=== PATIENT | male | born 1995 | race Caucasian/White ===

== ENCOUNTER 2018-06-24 17:37 | Emergency (ER) | payer OTHER ==
[2018-06-24 18:43] LABS: HEMATOCRIT 49.4 % (42.0-52.0); HEMOGLOBIN 17.1 g/dl (13.5-17.5); MEAN CORPUSCULAR HEMOGLOBIN 29.9 pg (27.0-33.0); MEAN CORPUSCULAR HGB CONC 34.6 g/dl (32.0-36.5); MEAN CORPUSCULAR VOLUME 86.4 fl (80.0-96.0); PLATELET COUNT, AUTOMATED 112 10^3/uL (150-450); RED BLOOD COUNT 5.72 10^6/uL (4.30-6.10); RED CELL DISTRIBUTION WIDTH 12.6 % (11.5-14.5); WHITE BLOOD COUNT 9.4 10^3/uL (4.0-10.0)
[2018-06-24 19:10] LABS: AMPHETAMINES LEVEL URINE NEGATIVE (NEGATIVE); BARBITURATES URINE NEGATIVE (NEGATIVE); BENZODIAZEPINES URINE NEGATIVE (NEGATIVE); CANNABINOIDS URINE NEGATIVE (NEGATIVE); COCAINE METABOLITE URINE NEGATIVE (NEGATIVE); METHADONE URINE NEGATIVE (NEGATIVE); OPIATES URINE NEGATIVE (NEGATIVE); PHENCYCLIDINE URINE NEGATIVE (NEGATIVE)
[2018-06-24 19:15] LABS: ACETAMINOPHEN LEVEL < 2.0 UG/ML (10.0-30.0); ALBUMIN 4.4 GM/DL (3.2-5.2); ALBUMIN/GLOBULIN RATIO 1.38 (1.00-1.93); ALKALINE PHOSPHATASE 67 U/L (45-117); ALT/SGPT 42 U/L (12-78); ANION GAP 6 MEQ/L (8-16); AST/SGOT 23 U/L (7-37); BILIRUBIN,DIRECT 0.1 MG/DL (0.0-0.2); BILIRUBIN,TOTAL 0.4 MG/DL (0.2-1.0); BLOOD UREA NITROGEN 9 MG/DL (7-18); CALCIUM LEVEL 9.1 MG/DL (8.5-10.1); CARBON DIOXIDE LEVEL 28 MEQ/L (21-32); CHLORIDE LEVEL 106 MEQ/L (98-107); ETHYL ALCOHOL (ETHANOL) < 0.003 % (0.000-0.010); GLOMERULAR FILTRATION RATE > 60.0 (>60); GLUCOSE, FASTING 93 MG/DL (70-100); POTASSIUM SERUM 4.1 MEQ/L (3.5-5.1); SALICYLATE LEVEL < 1.7 MG/DL (5.0-30.0); SODIUM LEVEL 140 MEQ/L (136-145); TOTAL PROTEIN 7.6 GM/DL (6.4-8.2)
== END 2018-06-24 20:44 | disposition home or self-care (01) ==
LOC: M ED 17:37
DX: F41.8 Other specified anxiety disorders (principal); F17.210 Nicotine dependence, cigarettes, uncomplicated
CPT/HCPCS: G0480

== ENCOUNTER 2018-07-30 17:25 | Inpatient (IN) | payer OTHER ==
[~2018-07-30] VITALS: Ht 185.4 cm; Wt 112.9 kg
[2018-07-30 17:58] LABS: HEMATOCRIT 50.2 % (42.0-52.0); HEMOGLOBIN 17.5 g/dl (13.5-17.5); MEAN CORPUSCULAR HEMOGLOBIN 29.5 pg (27.0-33.0); MEAN CORPUSCULAR HGB CONC 34.9 g/dl (32.0-36.5); MEAN CORPUSCULAR VOLUME 84.7 fl (80.0-96.0); PLATELET COUNT, AUTOMATED 143 10^3/uL (150-450); RED BLOOD COUNT 5.93 10^6/uL (4.30-6.10); WHITE BLOOD COUNT 10.8 10^3/uL (4.0-10.0)
[2018-07-30 18:12] LABS: AMPHETAMINES LEVEL URINE NEGATIVE (NEGATIVE); BARBITURATES URINE NEGATIVE (NEGATIVE); BENZODIAZEPINES URINE NEGATIVE (NEGATIVE); CANNABINOIDS URINE NEGATIVE (NEGATIVE); COCAINE METABOLITE URINE NEGATIVE (NEGATIVE); METHADONE URINE NEGATIVE (NEGATIVE); OPIATES URINE NEGATIVE (NEGATIVE); PHENCYCLIDINE URINE NEGATIVE (NEGATIVE)
--- NOTE | 2018-07-30 18:51 | REP ---
RIGHT HAND, FOUR VIEWS: HISTORY: Trauma. There is no acute fracture or dislocation. The joint spaces are normal in appearance. IMPRESSION: There is no acute fracture or dislocation. Electronically Signed by Farzad Adams MD 07/30/2018 06:53 P
[2018-07-30 18:53] LABS: ACETAMINOPHEN LEVEL < 2.0 UG/ML (10.0-30.0); ALBUMIN 4.6 GM/DL (3.2-5.2); ALT/SGPT 37 U/L (12-78); BILIRUBIN,DIRECT 0.1 MG/DL (0.0-0.2); BILIRUBIN,TOTAL 0.5 MG/DL (0.2-1.0); BLOOD UREA NITROGEN 21 MG/DL (7-18); CALCIUM LEVEL 9.5 MG/DL (8.5-10.1); CARBON DIOXIDE LEVEL 25 MEQ/L (21-32); CHLORIDE LEVEL 106 MEQ/L (98-107); CREATININE FOR GFR 1.04 MG/DL (0.70-1.30); ETHYL ALCOHOL (ETHANOL) < 0.003 % (0.000-0.010); GLOMERULAR FILTRATION RATE > 60.0 (>60); GLUCOSE, FASTING 84 MG/DL (70-100); SODIUM LEVEL 140 MEQ/L (136-145); TOTAL PROTEIN 7.9 GM/DL (6.4-8.2)
[2018-07-30] MEDS ORDERED: ACETAMINOPHEN TAB 650MG DOSE (2X325MG) PO PRN (19:15)
[2018-07-30] MEDS ORDERED: MAALOX 30 ML SUSP *UDC PO PRN (19:15)
[2018-07-30] MEDS ORDERED: MOM 30ML SUSPENSION UDC PO PRN (19:15)
[2018-07-30] MEDS ORDERED: DIPH25CA PO (19:20)
[2018-07-30] MEDS ORDERED: PROAAER10 INH (19:20)
[2018-07-30] MEDS ORDERED: ACET1TAB55 PO (19:20)
[2018-07-30] MEDS ORDERED: FLON1SPR NARES (19:20)
[2018-07-30] MEDS ORDERED: AZIT-10 PO (19:20)
[2018-07-30] MEDS ORDERED: MUCI120T PO (19:20)
[2018-07-30 20:21] VITALS: BP 140/81
[2018-07-30] MEDS: OLANZapine ORAL DISINTEGRATING TAB 5MG PO PRN (20:56)
[2018-07-30] MEDS ORDERED: ALBUTEROL 90 MCG/ACT 8GM HFA INHALER INH PRN (21:15)
[2018-07-30] MEDS: AZITHROMYCIN 250 MG TAB PO SCH (21:36)
[2018-07-30] MEDS: traZODone 50 MG TAB PO PRN (21:37)
[2018-07-31 06:07] VITALS: BP 138/66
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
--- NOTE | 2018-07-31 09:46 | HPEPDOC ---
[facility] Medical History & Physical Date of Admission Jul 30, 2018 History and Physical PCP: [facility] ATTENDING: Dr. Milagro Taylor HPI: 22yoM admitted to [facility] for unspecified mood disorder, being medically examined today. No acute medical complaints today. Injured Rt hand with punching a wall yesterday prior to admission. XR in ED was negative for fracture. Denies any fevers, chills, weakness, fatigue, PFEIFFER, CP, SOB, cough, palpitations, abdominal pain, N/V/D or changes in bowel or bladder habits. PMHx: Anxiety depression insomnia H/O SI allergic rhinitis PSHX: cholecystectomy SOCHX: Resides in: [facility], [place] Marital Status: single Kids: none Employment: Active duty Tobacco use: 1-2 ppd ETOH: 1-2 drinks on weekends Illicit Drugs: Denies IV Drug Use: Denies Tattoos done unprofessionally: Denies FAMHX: Mother: Alive, well Father: unknown Siblings: 1 sister Alive, well Children: none Unexpected deaths due to medical reasons: None. ROS: As noted in HPI, otherwise 11pt ROS of systems reviewed and remarkable only for recent bronchitis, pt states was placed on Zithromax and has 2 days left of the prescription. States symptoms have improved, cough improved. Denies fevers, chills, sputum. PE: GEN: 22yoM, appears stated age. Well-nourished, well developed. No acute distress. Alert and oriented x 3. Pleasant, interactive. HEENT: Normocephalic, atraumatic. Pupils are equal, round, and reactive to light. Extraocular movements are intact. No nystagmus appreciated. Sclera are nonicteric. Conjunctiva without injection. Nose midline. Nasal turbinates without bogginess. EACs both patent BL. TMs both visualized and hernandez with good cone of light, no bulging or erythema. No facial asymmetry. Moist mucous membranes. Dentition fair. Pharynx pink and moist, no cobblestoning. Neck supple, trachea midline. No lymphadenopathy or thyromegaly appreciated. CHEST: Regular rate and rhythm, +S1, +S2 LUNGS: Clear to auscultation bilaterally. No wheezes, rales, or rhonchi. Breathing appears symmetric and easy. Patient is speaking in full sentences. No accessory muscle use. ABD: Round, soft, non-tender, non-distended. +Bowel sounds throughout. No rebound or guarding. No costovertebral angle tenderness. EXT: Pulses 2+ bilaterally dorsalis pedis and radial. No lower extremity edema appreciated. SKIN: [place], dry, warm. Capillary refill <2sec. No rashes. NEURO: Alert and oriented x 3. Cranial nerves III-XII are intact. No focal deficits appreciated. EKG: pending XR Rt Hand There is no acute fracture or dislocation. Electronically Signed by Farzad Adams MD 07/30/2018 06:53 P A&P: 22yoM admitted to [facility] for unspecified mood disorder 1. Psych. Plan per Psychiatry. Obtain baseline EKG to assure the safety of psychiatric medications as they can prolong the QT interval. 2. Nicotine dependence. Patch available. 3. Bronchitis. Tmax 99.0 WBC 10.8. Pt states symptoms are improving. Zithromax D 10/16. Continue Mucinex BID. Tylenol as needed. Albuterol HFA 2 puffs Q4 hr if needed. Monitor. 4. Follow up with PCP on discharge. 5. Rt hand pain S/P punching a wall. Continue tylenol as needed. Apply ice if needed. XR negative for fracture. 6. Allergic rhinitis. Continue Flonase daily. 7. Staff member Kamron present throughout exam. Vital Signs Vital Signs Date Time Temp Pulse Resp B/P (MAP) Pulse Ox O2 Delivery O2 Flow Rate FiO2 07/31/18 06:07 98.0 59 16 138/66 (90) 07/30/18 20:21 Room Air 07/30/18 19:18 98 Laboratory Data Labs 24H Laboratory Tests 2 07/30/18 17:41: Nucleated Red Blood Cells % (auto) 0.0, Anion Gap 9, Glomerular Filtration Rate > 60.0, Calcium Level 9.5, Aspartate Amino Transf (AST/SGOT) 21, Alanine Aminotransferase (ALT/SGPT) 37, Alkaline Phosphatase 79, Total Bilirubin 0.5, Direct Bilirubin 0.1, Total Protein 7.9, Albumin 4.6, Albumin/Globulin Ratio 1.39, Thyroid Stimulating Hormone (TSH) 1.390, Salicylates Level 2.0L, Urine Amp hetamines Screen NEGATIVE, Urine Benzodiazepines Screen NEGATIVE, Urine Opiates Screen NEGATIVE, Urine Methadone Screen NEGATIVE, Acetaminophen Level < 2.0L, Urine Barbiturates Screen NEGATIVE, Urine Phencyclidine Screen NEGATIVE, Urine Cocaine Metabolite Screen NEGATIVE, Urine Cannabinoids Screen NEGATIVE, Ethyl Alcohol Level < 0.003 CBC/BMP Laboratory Tests 07/30/18 17:41 Red Blood Count 5.93, Mean Corpuscular Volume 84.7, Mean Corpuscular Hemoglobin 29.5, Mean Corpuscular Hemoglobin Concent 34.9, Red Cell Distribution Width 12.7 Home Medications Scheduled (Mucinex D 120-1200 mg) 1 Tab Tab, 2 TAB PO DAILY Azithromycin (Azithromycin) 250 Mg Tab, 250 MG PO DAILY HAS 2 DOSES LEFT OF Z-LUISA Fluticasone Propionate (Flonase Allergy Relief) 50 Mcg/Act Spr, 2 SPRAY NARES DAILY Scheduled PRN Acetaminophen (Acetaminophen) 325 Mg Tab, 650 MG PO Q6H PRN for PAIN Albuterol Sulfate (Proair Hfa) 108 Mcg/Act Aer, 2 PUFF INH QID PRN for SHORTNESS OF BREATH Diphenhydramine HCl (Diphenhydramine HCl) 25 Mg Cap, 50 MG PO QHS PRN for SLEEP Allergies Coded Allergies: No Known Drug Allergy (Verified Allergy, Unknown, 06/24/18) Tiffanie Gordillo Jul 31, 2018 09:46
[2018-07-31] MEDS: guaiFENesin ER 600 MG TAB PO SCH ×2 (11:37→21:31)
[2018-07-31] MEDS: NICOTINE 21MG/24HR 1 EA TRANSDERMAL TD SCH (11:37)
[2018-07-31] MEDS: SERTRALINE HCL 50 MG TAB PO SCH (11:37)
[2018-07-31] MEDS: hydrOXYzine 50 MG TAB PO SCH ×2 (11:37→21:31)
[2018-07-31] MEDS: FLUTICASONE PROP 0.05% NASAL SPRAY 16 GM (FLONASE) NARES SCH (11:37)
[2018-07-31 18:00] VITALS: BP 127/59
[2018-07-31] MEDS: traZODone 50 MG TAB PO PRN (21:31)
[2018-07-31] MEDS: AZITHROMYCIN 250 MG TAB PO SCH (21:31)
--- NOTE | 2018-08-01 00:03 | ECGEPIP ---
Stationary ECG Study Test Date: 2018-07-31 Pat Name: DAISY ALVARADO Department: Room: [place] [address] Gender: M Program Professional: ANA ROSA : 1995 Requested By: Tiffanie Gordillo Order Number: [id number] Reading MD: Taz Gonzalez Measurements Intervals [place] Rate: 68 P: 60 OH: 158 QRS: 60 QRSD: 101 T: 43 QT: 369 QTc: 393 Interpretive Statements SINUS RHYTHM WITH SINUS ARRHYTHMIA Comparison tracing not on file Electronically Signed On 08-01-2018 0:03:11 EST by Taz Gonzalez
[2018-08-01 06:39] VITALS: BP 124/60
[2018-08-01] MEDS: FLUTICASONE PROP 0.05% NASAL SPRAY 16 GM (FLONASE) NARES SCH (08:57)
[2018-08-01] MEDS: NICOTINE 21MG/24HR 1 EA TRANSDERMAL TD SCH (08:57)
[2018-08-01] MEDS: hydrOXYzine 50 MG TAB PO SCH ×2 (08:57→22:43)
[2018-08-01] MEDS: guaiFENesin ER 600 MG TAB PO SCH ×2 (08:57→21:55)
[2018-08-01] MEDS: SERTRALINE HCL 50 MG TAB PO SCH (08:57)
[2018-08-01 18:00] VITALS: BP 144/76
[2018-08-01] MEDS: traZODone 50 MG TAB PO PRN (22:43)
[2018-08-02 06:38] VITALS: BP 128/62
[2018-08-02] MEDS: SERTRALINE HCL 50 MG TAB PO SCH (08:59)
[2018-08-02] MEDS: FLUTICASONE PROP 0.05% NASAL SPRAY 16 GM (FLONASE) NARES SCH (08:59)
[2018-08-02] MEDS: NICOTINE 21MG/24HR 1 EA TRANSDERMAL TD SCH (08:59)
[2018-08-02] MEDS: guaiFENesin ER 600 MG TAB PO SCH ×2 (08:59→21:49)
[2018-08-02] MEDS: hydrOXYzine 50 MG TAB PO SCH ×2 (08:59→21:49)
--- NOTE | 2018-08-02 14:00 | IPN ---
DATE OF SERVICE: 08/01/2018 The patient today states, "It has been a pretty good day today". He says he is feeling less depressed. Mood is 3/10 with the closer to 10 as the most depressed. He is also sleeping well, actually for the very first time since he can remember. He says he slept very well with the trazodone. He is denying being suicidal today. MENTAL STATUS EXAMINATION: The patient is alert and oriented times three. Eye contact is good. Psychomotor activity is normal. No formal thought disorder noted. Mood is "pretty good". Affect is appropriate to mood. He is not psychotic, suicidal or homicidal. Concentration is fair. Insight and judgment fair. DIAGNOSIS: Major depressive disorder, recurrent. Other specified trauma and stressors. At this point, will continue to monitor the patient for continued resolution of suicidal ideations and continued elevation and stabilization of his mood, which he is now resolving.
[2018-08-02 18:01] VITALS: BP 138/76
[2018-08-02] MEDS: traZODone 100 MG TAB PO PRN (22:04)
[2018-08-03 06:32] VITALS: BP 131/76
[2018-08-03] MEDS: guaiFENesin ER 600 MG TAB PO SCH ×2 (09:01→21:13)
[2018-08-03] MEDS: NICOTINE 21MG/24HR 1 EA TRANSDERMAL TD SCH (09:01)
[2018-08-03] MEDS: hydrOXYzine 50 MG TAB PO SCH ×2 (09:01→21:13)
[2018-08-03] MEDS: SERTRALINE HCL 50 MG TAB PO SCH (09:01)
[2018-08-03] MEDS: FLUTICASONE PROP 0.05% NASAL SPRAY 16 GM (FLONASE) NARES SCH (09:01)
--- NOTE | 2018-08-03 10:45 | MHIPNPDOC ---
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 Pt says he has been under a great deal of stress lately due to financial problems incurred while helping to support his mother. Pt also cites work problems as a source of stress. Today he says he cursed out his [employer] and then punched a wall. Pt does have evidence of an injury to his right hand. Per Capt. Servando at , pt came in today and told him he'd written a suicide note and had intention to kill self with a knife. Per the Capt. pt was "sobbing" in the provider's office. Pt claims when he was at [facility] in June he minimized his problems. Today, pt expresses SI with a plan." VITAL SIGNS: See below. NEW TEST RESULTS: See below. CURRENT MEDICATIONS: See below. MENTAL STATUS EXAMINATION: Patient is a 22-year old male, who is alert, oriented and cooperative, in hospital scrubs. Speech: Is fluent, low in volume with regular rate and rhythm. Language skills are fair Thought processes including: logical and linear Thought content: Depressive thoughts, guilt over suicide attempt. Description of abnormal or psychotic thoughts: Denies AV hallucinations Judgment: poor Insight: fair Orientation: oriented to person, place and time Recent and remote memory: intact Attention span and concentration: fair Language: fair Fund of knowledge: fair Mood: depressed, constricted Affect: Mood congruent DIAGNOSES: 1. Major Depressive Disorder, recurrent 2. Other specified trauma and stressors ASSESSMENT: Patient was interviewed today while reading in his room. Mr. Garcia was quite pleasant and cooperative. He willingly discussed the circumstances that lead to his presentation. 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 He is regretful of his planned suicide. He remains shocked that he was in such a low place to have almost completed his attempt. He shares that he is greatful to be alive today, although he does recognize that he needs further, long-term treatment, help to prevent himself from slipping back to that dark place. He shares a history of starting to work at a young age in order to care for his mother who is riddled with a number of health ailments, including a broken back. Mr. Garcia has been supporting his mom since his first paycheck. 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 He is originally from [place] and believes the weather, in addition to his work stress, has contributed to his symptoms. He feels safe on the unit. He denies SI/HI and AV hallucinations. Mr. Garcia contracts for safety. MANAGEMENT PLAN: Continue current plan and monitor for suicidal ideation TIME SPENT: 30 minutes. Vital Signs Vital Signs Date Time Temp Pulse Resp B/P (MAP) Pulse Ox O2 Delivery O2 Flow Rate FiO2 08/03/18 06:32 97.8 72 18 131/76 (94) 08/02/18 09:00 Room Air 07/30/18 19:18 98 Current Medications Current Medications Acetaminophen (Tylenol Tab) 650 mg Q6HP PRN PO HEADACHE or DISCOMFORT Last administered on 07/31/18at 21:34; Start 07/30/18 at 19:15 Al Hydrox/Mg Hydrox/Simethicone (Mylanta) 30 ml Q4HP PRN PO HEARTBURN/INDIGESTION; Start 07/30/18 at 19:15 Albuterol Sulfate (Proventil, Ventolin Hfa) 2 puff QIDP PRN INH SHORTNESS OF BREATH Last administered on 08/01/18at 15:39; Start 07/30/18 at 21:15 Azithromycin (Zithromax Tab) 250 mg QHS PO Last administered on 07/31/18at 21:31; Start 07/30/18 at 21:00; Stop 07/31/18 at 21:01; Status DC Fluticasone Propionate (Flonase 0.05% Nasal [employer]) 2 spray DAILY NARES Last administered on 08/03/18at 09:01; Start 07/31/18 at 09:00 Guaifenesin (Mucinex Tab Er) 600 mg BID PO Last administered on 08/03/18at 09: 01; Start 07/31/18 at 09:00 Home Med (Med Rec Complete!) ASDIRECTED XX ; Start 07/30/18 at 19:30; Stop 07/30/18 at 19:30; Status DC Hydroxyzine HCl (Atarax) 50 mg BID PO Last administered on 08/03/18at 09:01; Start 07/31/18 at 09:00 Magnesium Hydroxide (Milk Of Magnesia) 30 ml DAILYPRN PRN PO CONSTIPATION; Start 07/30/18 at 19:15 Nicotine (Nicoderm Cq 21mg) 1 patch DAILY TD Last administered on 08/03/18at 09:01; Start 07/31/18 at 09:00 Olanzapine (ZyPREXA ZYDIS) 5 mg Q6HP PRN PO ANXIETY/AGITATION Last administered on 07/30/18at 20:56; Start 07/30/18 at 19:15 Sertraline HCl (Zoloft) 50 mg QAM PO Last administered on 08/03/18at 09:01; Start 07/31/18 at 09:00 Trazodone HCl (Desyrel) 50 mg QHSP PRN PO INSOMNIA Last administered on 08/01/18at 22:43; Start 07/30/18 at 21:15; Stop 08/02/18 at 14:14; Status DC Trazodone HCl (Desyrel) 100 mg QHSP PRN PO INSOMNIA Last administered on 08/02/18at 22:04; Start 08/02/18 at 14:15 Allergies Coded Allergies: No Known Drug Allergy (Verified Allergy, Unknown, 06/24/18) GME ATTESTATION GME ATTESTATION My faculty preceptor for this patient encounter was physically present during the encounter and was fully available. All aspects of the patient interview, examination, medical decision making process, and medical care plan development were reviewed and approved by the faculty preceptor. The faculty preceptor is aware and concurs with the plan as stated in the body of this note and will attest to such by his/her cosignature. LAZARO DE LA VEGA DO Aug 03, 2018 10:45
[2018-08-03 18:00] VITALS: BP 133/70
[2018-08-03] MEDS: traZODone 100 MG TAB PO PRN (21:13)
--- NOTE | 2018-08-03 21:13 | MHIPN ---
DATE: 08/02/2018 The patient today states that he is feeling better. His mood is 5 out of 10 where the closest to 10 is the most depressed. He states that he slept good with the trazodone, but he felt that he was feeling better before when he was on 100 mg and requests that I increase the dose. MENTAL STATUS EXAMINATION: He is alert and oriented times three. Eye contact is fair. Psychomotor activity is normal. He is verbally spontaneous. There is no formal thought disorder noted. He says his mood is "better." Affect is full range and appropriate. He is not psychotic, suicidal or homicidal. Concentration is fair. Memory intact. Insight and judgment are fair. DIAGNOSES: 1. Major depressive disorder, recurrent. 2. Other specified trauma/ stressors.. TREATMENT PLAN: At this time, we will continue to treat the patient for continued elevation of his mood and for continued resolution of suicidal ideation and we will go ahead and increase the trazodone to 100 mg. MTDD
[2018-08-04 06:55] VITALS: BP 143/78
[2018-08-04] MEDS: FLUTICASONE PROP 0.05% NASAL SPRAY 16 GM (FLONASE) NARES SCH (08:45)
[2018-08-04] MEDS: hydrOXYzine 50 MG TAB PO SCH ×2 (08:46→21:53)
[2018-08-04] MEDS: SERTRALINE HCL 50 MG TAB PO SCH (08:46)
[2018-08-04] MEDS: guaiFENesin ER 600 MG TAB PO SCH ×2 (08:46→21:53)
[2018-08-04] MEDS: NICOTINE 21MG/24HR 1 EA TRANSDERMAL TD SCH (08:46)
--- NOTE | 2018-08-04 16:41 | MHIPNPDOC ---
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 Pt says he has been under a great deal of stress lately due to financial problems incurred while helping to support his mother. Pt also cites work problems as a source of stress. Today he says he cursed out his [employer] and then punched a wall. Pt does have evidence of an injury to his right hand. Per Capt. Servando at , pt came in today and told him he'd written a suicide note and had intention to kill self with a knife. Per the Capt. pt was "sobbing" in the provider's office. Pt claims when he was at [facility] in June he minimized his problems. Today, pt expresses SI with a plan." VITAL SIGNS: See below. NEW TEST RESULTS: See below. CURRENT MEDICATIONS: See below. MENTAL STATUS EXAMINATION: Patient is a 22-year old male, who is alert, oriented and cooperative, in hospital scrubs. Speech: Is fluent, low in volume with regular rate and rhythm. Language skills are fair Thought processes including: logical and linear Thought content: Depressive thoughts, guilt over suicide attempt. Description of abnormal or psychotic thoughts: Denies AV hallucinations Judgment: poor Insight: fair Orientation: oriented to person, place and time Recent and remote memory: intact Attention span and concentration: fair Language: fair Fund of knowledge: fair Mood: depressed, constricted Affect: Mood congruent DIAGNOSES: 1. Major Depressive Disorder, recurrent 2. Other specified trauma and stressors ASSESSMENT: Patient continues to subscribe to thoughts of depression. He shares that he is no longer suicidal, though he remains extremely depressed about the prospect of remaining in the . He continues to be regretful of his planned suicide and agreeable to long-term treatment. He is, however, anxious about receiving his treatment in a facility. He is worried that it will be similar to that of [place] and will be a hindrance to his recovery. He remained fixated on insuring he will be able to have cigarettes, as these have become a coping mechanism for him. He continues with his medications without difficulty or side effects. He denies SI/HI and AV hallucinations. Mr. Garcia contracts for safety. MANAGEMENT PLAN: Continue current plan and monitor for suicidal ideation with anticipation to discharge to long-term treatment facility. TIME SPENT: 30 minutes. Vital Signs Vital Signs Date Time Temp Pulse Resp B/P (MAP) Pulse Ox O2 Delivery O2 Flow Rate FiO2 08/04/18 07:42 Room Air 08/04/18 06:55 97.5 55 16 143/78 (99) 07/30/18 19:18 98 Current Medications Current Medications Acetaminophen (Tylenol Tab) 650 mg Q6HP PRN PO HEADACHE or DISCOMFORT Last administered on 07/31/18 21:34; Start 07/30/18 at 19:15 Al Hydrox/Mg Hydrox/Simethicone (Mylanta) 30 ml Q4HP PRN PO HEARTBURN/INDIGESTION; Start 07/30/18 at 19:15 Albuterol Sulfate (Proventil, Ventolin Hfa) 2 puff QIDP PRN INH SHORTNESS OF BREATH Last administered on 08/01/18at 15:39; Start 07/30/18 at 21:15 Azithromycin (Zithromax Tab) 250 mg QHS PO Last administered on 07/31/18at 21:31; Start 07/30/18 at 21:00; Stop 07/31/18 at 21:01; Status DC Fluticasone Propionate (Flonase 0.05% Nasal [place]) 2 spray DAILY NARES Last administered on 08/04/18at 08:45; Start 07/31/18 at 09:00 Guaifenesin (Mucinex Tab Er) 600 mg BID PO Last administered on 08/04/18at 08:46; Start 07/31/18 at 09:00 Home Med (Med Rec Complete!) ASDIRECTED XX ; Start 07/30/18 at 19:30; Stop 07/30/18 at 19:30; Status DC Hydroxyzine HCl (Atarax) 50 mg BID PO Last administered on 08/04/18at 08:46; Start 07/31/18 at 09:00 Magnesium Hydroxide (Milk Of Magnesia) 30 ml DAILYPRN PRN PO CONSTIPATION; Start 07/30/18 at 19:15 Nicotine (Nicoderm Cq 21mg) 1 patch DAILY TD Last administered on 08/04/18at 08:46; Start 07/31/18 at 09:00 Olanzapine (ZyPREXA ZYDIS) 5 mg Q6HP PRN PO ANXIETY/AGITATION Last administered on 07/30/18at 20:56; Start 07/30/18 at 19:15 Sertraline HCl (Zoloft) 50 mg QAM PO Last administered on 08/04/18at 08:46; Start 07/31/18 at 09:00; Stop 08/04/18 at 11:54; Status DC Sertraline HCl (Zoloft) 75 mg QAM PO ; Start 08/05/18 at 09:00 Trazodone HCl (Desyrel) 50 mg QHSP PRN PO INSOMNIA Last administered on 08/01/18at 22:43; Start 07/30/18 at 21:15; Stop 08/02/18 at 14:14; Status DC Trazodone HCl (Desyrel) 100 mg QHSP PRN PO INSOMNIA Last administered on 08/03/18at 21:13; Start 08/02/18 at 14:15 Allergies Coded Allergies: No Known Drug Allergy (Verified Allergy, Unknown, 06/24/18) GME ATTESTATION GME ATTESTATION My faculty preceptor for this patient encounter was physically present during the encounter and was fully available. All aspects of the patient interview, examination, medical decision making process, and medical care plan development were reviewed and approved by the faculty preceptor. The faculty preceptor is aware and concurs with the plan as stated in the body of this note and will attest to such by his/her cosignature. LAZARO DE LA VEGA DO Aug 04, 2018 16:41
[2018-08-04 18:21] VITALS: BP 136/68
[2018-08-04] MEDS: traZODone 100 MG TAB PO PRN (21:53)
[2018-08-05 06:55] VITALS: BP 118/66
[2018-08-05] MEDS: FLUTICASONE PROP 0.05% NASAL SPRAY 16 GM (FLONASE) NARES SCH (08:41)
[2018-08-05] MEDS: NICOTINE 21MG/24HR 1 EA TRANSDERMAL TD SCH (08:42)
[2018-08-05] MEDS: guaiFENesin ER 600 MG TAB PO SCH ×2 (08:42→20:51)
[2018-08-05] MEDS: SERTRALINE HCL 25 MG TABLET PO SCH (08:42)
[2018-08-05] MEDS: hydrOXYzine 50 MG TAB PO SCH ×2 (08:42→20:51)
[2018-08-05] MEDS: OLANZapine ORAL DISINTEGRATING TAB 5MG PO PRN (15:27)
--- NOTE | 2018-08-05 17:37 | MHIPNPDOC ---
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 Pt says he has been under a great deal of stress lately due to financial problems incurred while helping to support his mother. Pt also cites work problems as a source of stress. Today he says he cursed out his [employer] and then punched a wall. Pt does have evidence of an injury to his right hand. Per Capt. Servando at , pt came in today and told him he'd written a suicide note and had intention to kill self with a knife. Per the Capt. pt was "sobbing" in the provider's office. Pt claims when he was at [facility] in June he minimized his problems. Today, pt expresses SI with a plan." VITAL SIGNS: See below. NEW TEST RESULTS: See below. CURRENT MEDICATIONS: See below. MENTAL STATUS EXAMINATION: Patient is a 22-year old male, who is alert, oriented and cooperative, in hospital scrubs. Speech: Is fluent, low in volume with regular rate and rhythm. Language skills are fair Thought processes including: logical and linear Thought content: Depressive thoughts, guilt over suicide attempt, anxious thoughts about going to a Hospital ([facility] in [place]). He has irritable thoughts about being confined to a locked unit like [facility] Description of abnormal or psychotic thoughts: Denies AV hallucinations, denies SI, denies HI Judgment: poor Insight: fair Orientation: oriented to person, place and time Recent and remote memory: intact Attention span and concentration: fair Language: fair Fund of knowledge: fair Mood: depressed, anxious, slightly irritable, constricted Affect: Mood congruent DIAGNOSES: 1. Major Depressive Disorder, recurrent 2. Other specified trauma and stressors ASSESSMENT: patient says he continues to fels depressed, but at the same time he says he feels a little bit better compared to when he was admitted. he thinks he feels so bad because he misses going out to have a cigarette, he says he enjys nature, it has a healing power for him and being locked in makes him feel more anxious. He says he feels as if he is going to have a full panic attack or as if he is going to blow up when he is in group, because he can't stand being so c onstrained. I reminded him that he has Zyprexa PRN for anxiety or agitation and I reassured him that this medication does not cause dependence. he was able to relax and said he was going to take a Zyprexa tablet to calm down. We discussed about [facility] in [place] and HE SAID HE FELT BETTER AFTER i TOLD HIM THAT OTHER [employer] HAD FELT VERY PLEASED WITH THE WAY THEY WERE TREATED BY STAFF THERE. MANAGEMENT PLAN: Continue current plan and monitor for suicidal ideation with anticipation to discharge to long-term treatment facility. TIME SPENT: 30 minutes. Vital Signs Vital Signs Date Time Temp Pulse Resp B/P (MAP) Pulse Ox O2 Delivery O2 Flow Rate FiO2 08/05/18 06:55 98.4 63 18 118/66 (83) 08/04/18 07:42 Room Air 07/30/18 19:18 98 Current Medications Current Medications Acetaminophen (Tylenol Tab) 650 mg Q6HP PRN PO HEADACHE or DISCOMFORT Last administered on 07/31/18at 21:34; Start 07/30/18 at 19:15 Al Hydrox/Mg Hydrox/Simethicone (Mylanta) 30 ml Q4HP PRN PO HEARTBURN/INDIGES TION; Start 07/30/18 at 19:15 Albuterol Sulfate (Proventil, Ventolin Hfa) 2 puff QIDP PRN INH SHORTNESS OF BREATH Last administered on 08/01/18at 15:39; Start 07/30/18 at 21:15 Azithromycin (Zithromax Tab) 250 mg QHS PO Last administered on 07/31/18at 21:3 1; Start 07/30/18 at 21:00; Stop 07/31/18 at 21:01; Status DC Fluticasone Propionate (Flonase 0.05% Nasal [place]) 2 spray DAILY NARES Last administered on 08/05/18at 08:41; Start 07/31/18 at 09:00 Guaifenesin (Mucinex Tab Er) 600 mg BID PO Last administered on 08/05/18at 08:42; Start 07/31/18 at 09:00 Home Med (Med Rec Complete!) ASDIRECTED XX ; Start 07/30/18 at 19:30; Stop 07/30/18 at 19:30; Status DC Hydroxyzine HCl (Atarax) 50 mg BID PO Last administered on 08/05/18at 08:42; Start 07/31/18 at 09:00 Magnesium Hydroxide (Milk Of Magnesia) 30 ml DAILYPRN PRN PO CONSTIPATION; Start 07/30/18 at 19:15 Nicotine (Nicoderm Cq 21mg) 1 patch DAILY TD Last administered on 08/05/18at 08:42; Start 07/31/18 at 09:00 Olanzapine (ZyPREXA ZYDIS) 5 mg Q6HP PRN PO ANXIETY/AGITATION Last administered on 08/05/18at 15:27; Start 07/30/18 at 19:15 Sertraline HCl (Zoloft) 50 mg QAM PO Last administered on 08/04/18at 08:46; Start 07/31/18 at 09:00; Stop 08/04/18 at 11:54; Status DC Sertraline HCl (Zoloft) 75 mg QAM PO Last administered on 08/05/18at 08:42; Start 08/05/18 at 09:00 Trazodone HCl (Desyrel) 50 mg QHSP PRN PO INSOMNIA Last administered on 08/01/18at 22:43; Start 07/30/18 at 21:15; Stop 08/02/18 at 14:14; Status DC Trazodone HCl (Desyrel) 100 mg QHSP PRN PO INSOMNIA Last administered on 08/04/18at 21:53; Start 08/02/18 at 14:15 Allergies Coded Allergies: No Known Drug Allergy (Verified Allergy, Unknown, 06/24/18) CASEY COLLAZO MD Aug 05, 2018 17:37
[2018-08-05 18:34] VITALS: BP 133/82
[2018-08-05] MEDS: traZODone 100 MG TAB PO PRN (21:22)
[2018-08-06 06:30] VITALS: BP 129/64
[2018-08-06] MEDS: FLUTICASONE PROP 0.05% NASAL SPRAY 16 GM (FLONASE) NARES SCH (08:16)
[2018-08-06] MEDS: hydrOXYzine 50 MG TAB PO SCH ×2 (08:17→21:16)
[2018-08-06] MEDS: SERTRALINE HCL 25 MG TABLET PO SCH (08:17)
[2018-08-06] MEDS: guaiFENesin ER 600 MG TAB PO SCH ×2 (08:17→21:16)
[2018-08-06] MEDS: NICOTINE 21MG/24HR 1 EA TRANSDERMAL TD SCH (08:18)
[2018-08-06] MEDS ORDERED: SERTRALINE HCL 25 MG TABLET PO ONE (08:45)
[2018-08-06] MEDS ORDERED: HYDRO50TAB PO (16:40)
[2018-08-06] MEDS ORDERED: TRAZ10TA PO (16:40)
[2018-08-06] MEDS ORDERED: OLAN5ZYD PO (16:40)
[2018-08-06] MEDS ORDERED: SERT-138 PO (16:40)
[2018-08-06 18:00] VITALS: BP 141/65
--- NOTE | 2018-08-06 18:46 | MHIPNPDOC ---
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 Pt says he has been under a great deal of stress lately due to financial problems incurred while helping to support his mother. Pt also cites work problems as a source of stress. Today he says he cursed out his [employer] and then punched a wall. Pt does have evidence of an injury to his right hand. Per Capt. Servando at , pt came in today and told him he'd written a suicide note and had intention to kill self with a knife. Per the Capt. pt was "sobbing" in the provider's office. Pt claims when he was at [facility] in June he minimized his problems. Today, pt expresses SI with a plan." VITAL SIGNS: See below. NEW TEST RESULTS: See below. CURRENT MEDICATIONS: See below. MENTAL STATUS EXAMINATION: Patient is a 22-year old male, who is alert, oriented and cooperative, in hospital scrubs. Speech: Is fluent, low in volume with regular rate and rhythm. Language skills are fair Thought processes including: logical and linear Thought content: Depressive thoughts, guilt over suicide attempt, anxious thoughts about going to a Hospital, but looking forward to leaving the unit. Description of abnormal or psychotic thoughts: Denies AV hallucinations, denies SI, denies HI Judgment: poor Insight: fair Orientation: oriented to person, place and time Recent and remote memory: intact Attention span and concentration: fair Language: fair Fund of knowledge: fair Mood: depressed, anxious, slightly irritable, constricted Affect: Mood congruent DIAGNOSES: 1. Major Depressive Disorder, recurrent 2. Other specified trauma and stressors ASSESSMENT: Patient was informed that he would likely be leaving tomorrow to a long-term treatment facility in [place]. Mr. Garcia was quite pleased with the news. He was originally unsettled about going as he felt spending time in another facility would only increase his depressive symptoms. Once he was re- assured by staff that the treatment center was run by civilians, he became much more open to the idea. He continues to describe feelings of anxiety and depression although, he reports, they have improved. He denies SI/HI, AV hallucinations. He contracts for safety while remaining on the unit. MANAGEMENT PLAN: Continue current plan and monitor for suicidal ideation with anticipation to discharge to long-term treatment facility. TIME SPENT: 30 minutes. Vital Signs Vital Signs Date Time Temp Pulse Resp B/P (MAP) Pulse Ox O2 Delivery O2 Flow Rate FiO2 08/06/18 08:22 Room Air 08/06/18 06:30 97.9 84 18 129/64 (85) Current Medications Current Medications Acetaminophen (Tylenol Tab) 650 mg Q6HP PRN PO HEADACHE or DISCOMFORT Last administered on 07/31/18 21:34; Start 07/30/18 at 19:15 Al Hydrox/Mg Hydrox/Simethicone (Mylanta) 30 ml Q4HP PRN PO HEARTBURN/INDIGESTION; Start 07/30/18 at 19:15 Albuterol Sulfate (Proventil, Ventolin Hfa) 2 puff QIDP PRN INH SHORTNESS OF BREATH Last administered on 08/01/18at 15:39; Start 07/30/18 at 21:15 Azithromycin (Zithromax Tab) 250 mg QHS PO Last administered on 07/31/18at 21:31; Start 07/30/18 at 21:00; Stop 07/31/18 at 21:01; Status DC Fluticasone Propionate (Flonase 0.05% Nasal [place]) 2 spray DAILY NARES Last administered on 08/06/18 08:16; Start 07/31/18 at 09:00 Guaifenesin (Mucinex Tab Er) 600 mg BID PO Last administered on 08/06/18at 08:17; Start 07/31/18 at 09:00 Home Med (Med Rec Complete!) ASDIRECTED XX ; Start 07/30/18 at 19:30; Stop 07/30/18 at 19:30; Status DC Hydroxyzine HCl (Atarax) 50 mg BID PO Last administered on 08/06/18at 08:17; Start 07/31/18 at 09:00 Magnesium Hydroxide (Milk Of Magnesia) 30 ml DAILYPRN PRN PO CONSTIPATION; Start 07/30/18 at 19:15 Nicotine (Nicoderm Cq 21mg) 1 patch DAILY TD Last administered on 08/06/18at 08:18; Start 07/31/18 at 09:00 Olanzapine (ZyPREXA ZYDIS) 5 mg Q6HP PRN PO ANXIETY/AGITATION Last administered on 08/05/18at 15:27; Start 07/30/18 at 19:15 Sertraline HCl (Zoloft) 50 mg QAM PO Last administered on 08/04/18at 08:46; Start 07/31/18 at 09:00; Stop 08/04/18 at 11:54; Status DC Sertraline HCl (Zoloft) 75 mg QAM PO Last administered on 08/06/18at 08:17; Start 08/05/18 at 09:00; Stop 08/06/18 at 08:26; Status DC Sertraline HCl (Zoloft) 100 mg QAM PO ; Start 08/07/18 at 09:00 Trazodone HCl (Desyrel) 50 mg QHSP PRN PO INSOMNIA Last administered on 08/01/18at 22:43; Start 07/30/18 at 21:15; Stop 08/02/18 at 14:14; Status DC Trazodone HCl (Desyrel) 100 mg QHSP PRN PO INSOMNIA Last administered on 08/05/18at 21:22; Start 08/02/18 at 14:15 Allergies Coded Allergies: No Known Drug Allergy (Verified Allergy, Unknown, 06/24/18) GME ATTESTATION GME ATTESTATION My faculty preceptor for this patient encounter was physically present during t he encounter and was fully available. All aspects of the patient interview, examination, medical decision making process, and medical care plan development were reviewed and approved by the faculty preceptor. The faculty preceptor is aware and concurs with the plan as stated in the body of this note and will attest to such by his/her cosignature. LAZARO DE LA VEGA DO Aug 06, 2018 18:46
[2018-08-06] MEDS: traZODone 100 MG TAB PO PRN (21:43)
[2018-08-07 06:40] VITALS: BP 135/59
[2018-08-07] MEDS ORDERED: SERTRALINE 100 MG TAB PO SCH (09:00)
--- NOTE | 2018-08-07 18:56 | MHDSPDOC ---
[facility] Discharge Summary Discharge Summary DATE OF ADMISSION: Jul 30, 2018 at 19:10 DATE OF DISCHARGE: Aug 07, 2018 at 08:15 DISCHARGE DIAGNOSES: 1. Major Depressive disorder, recurrent 2. Other specified trauma/stressor disorder REASON FOR ADMISSION: Patient is a 22 -year-old , male, who tells me, today, 07/31/18: "I left a note on my desk, but they were pissing me all day". "I don't want to talk about that", regarding the content of the note. 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 Pt says he has been under a great deal of stress lately due to financial problems incurred while helping to support his mother. Pt also cites work problems as a source of stress. Today he says he cursed out his [employer] and then punched a wall. Pt does have evidence of an injury to his right hand. Per Capt. Al at , pt came in today and told him he'd written a suicide note and had intention to kill self with a knife. Per the Capt. pt was "sobbing" in the provider's office. Pt claims when he was at [facility] in June he minimized his problems. Today, pt expresses SI with a plan." CONSULTANTS INVOLVED: None TREATMENT AND PROGRESS ON THE UNIT : Patient was cooperative, polite, never had behavioral problems. His mood had some improvement with the medications and he denied side effects but unfortunately he thinks that his depression, including his nicotine dependence are secondary to being in the [employer]. He doesn't like the [employer] and he was not very happy about going to [facility] until he was told it is run by civilians not [employer] staff. He said that he was not suicidal, not homicidal and not psychotic, he said he had hit the wall because it was better than hitting one of his higher ups. Patient has said that he felt as if he wanted to end his life before he was brought to the hospital because he felt overwhelmed but he really doesn't want to , he wants to get out of the [employer]. He is very depressed and his GARETH is very worried about him. They thought he would benefit from termite control representative treatment and I suggested it to him and he agereed. HOSPITAL COURSE: As above DISCHARGE ASSESSMENT: Not suicidal, not homicidal and not psychotic MENTAL STATUS EXAMINATION ON DISCHARGE: Patient is a 22-year old male, who is alert, oriented and cooperative, in hospital scrubs. Speech: Is fluent, low in volume with regular rate and rhythm. Language skills are fair Thought processes including: logical and linear Thought content: Depressive thoughts, guilt over suicide attempt, anxious thoughts about going to a Hospital, but looking forward to leaving the unit. Description of abnormal or psychotic thoughts: Denies AV hallucinations, denies SI, denies HI Judgment: poor Insight: fair Orientation: oriented to person, place and time Recent and remote memory: intact Attention span and concentration: fair Language: fair Fund of knowledge: fair Mood: depressed, anxious, slightly irritable, constricted Affect: Mood congruent MEDICATIONS ON DISCHARGE: Scheduled (Mucinex D 120-1200 mg) 1 Tab Tab, 2 TAB PO DAILY, (Reported) Azithromycin (Azithromycin) 250 Mg Tab, 250 MG PO DAILY, (Reported) HAS 2 DOSES LEFT OF Z-LUISA Fluticasone Propionate (Flonase Allergy Relief) 50 Mcg/Act Spr, 2 SPRAY NARES DAILY, (Reported) Hydroxyzine HCl (Hydroxyzine HCl) 50 Mg Tab, 50 MG PO BID for anxiety/agitation, #14 Sertraline HCl (Sertraline HCl) 100 Mg Tab, 100 MG PO QAM for depression, #7 Scheduled PRN Acetaminophen (Acetaminophen) 325 Mg Tab, 650 MG PO Q6H PRN for PAIN, (Reported) Albuterol Sulfate (Proair Hfa) 108 Mcg/Act Aer, 2 PUFF INH QID PRN for SHORTNESS OF BREATH, (Reported) Diphenhydramine HCl (Diphenhydramine HCl) 25 Mg Cap, 50 MG PO QHS PRN for SLEEP, (Reported) Olanzapine (Olanzapine Odt) 5 Mg Tab, 5 MG PO Q6HP PRN for ANXIETY/AGITATION, #28 Trazodone HCl (Trazodone HCl) 100 Mg Tab, 100 MG PO QHSP PRN for INSOMNIA, #7 PLAN/FOLLOWUP ARRANGEMENTS: Patient was picked up by GARETH at 8:30 a.m. to go to , pack his things and take the plane at noon time to go to [facility] for termite control representative treatment The amount of time spent in the coordination of care for this patient was approximately 30 minutes. Vital Signs/I&Os Vital Signs Date Time Temp Pulse Resp B/P (MAP) Pulse Ox O2 Delivery O2 Flow Rate FiO2 08/07/18 06:40 97.6 62 14 135/59 (84) 08/06/18 08:22 Room Air Medications Scheduled (Mucinex D 120-1200 mg) 1 Tab Tab, 2 TAB PO DAILY, (Reported) Azithromycin (Azithromycin) 250 Mg Tab, 250 MG PO DAILY, (Reported) HAS 2 DOSES LEFT OF Z-LUISA Fluticasone Propionate (Flonase Allergy Relief) 50 Mcg/Act Spr, 2 SPRAY NARES DAILY, (Reported) Hydroxyzine HCl (Hydroxyzine HCl) 50 Mg Tab, 50 MG PO BID for anxiety/agitation, #14 Sertraline HCl (Sertraline HCl) 100 Mg Tab, 100 MG PO QAM for depression, #7 Scheduled PRN Acetaminophen (Acetaminophen) 325 Mg Tab, 650 MG PO Q6H PRN for PAIN, (Reported) Albuterol Sulfate (Proair Hfa) 108 Mcg/Act Aer, 2 PUFF INH QID PRN for SHORTNESS OF BREATH, (Reported) Diphenhydramine HCl (Diphenhydramine HCl) 25 Mg Cap, 50 MG PO QHS PRN for SLEEP, (Reported) Olanzapine (Olanzapine Odt) 5 Mg Tab, 5 MG PO Q6HP PRN for ANXIETY/AGITATION, #28 Trazodone HCl (Trazodone HCl) 100 Mg Tab, 100 MG PO QHSP PRN for INSOMNIA, #7 Allergies Coded Allergies: No Known Drug Allergy (Verified Allergy, Unknown, 06/24/18) CASEY COLLAZO MD Aug 07, 2018 18:52
== END 2018-08-07 08:15 | DRG 885 ==
LOC: M ED 17:25 → M ED INP 19:10 → M PSY 20:19
PROVIDERS: ADMIT Psychiatry & Neurology Psychiatry; ATTEND Psychiatry & Neurology Psychiatry
DX: F33.9 Major depressive disorder, recurrent, unspecified (principal); J40 Bronchitis, not specified as acute or chronic; F43.8 Other reactions to severe stress; F17.210 Nicotine dependence, cigarettes, uncomplicated; J30.9 Allergic rhinitis, unspecified; M79.641 Pain in right hand; Z62.810 Personal history of physical and sexual abuse in childhood; Z56.4 Discord with boss and workmates; Z79.899 Other long term (current) drug therapy

== ENCOUNTER → 2018-11-25 | Outpatient (CLI) | payer OTHER ==
[~2018-11-25] MED LIST: ACET1TAB55 PO; AZIT-10 PO; DIPH25CA PO; FLON1SPR NARES; HYDRO50TAB PO; MUCI120T PO; OLAN5ZYD PO; PROAAER10 INH; SERT-138 PO; TRAZ10TA PO
--- NOTE | 2018-11-26 12:37 | SLEEPCENT ---
DATE OF STUDY: 11/25/2018 ORDERING PROVIDER: HUGH Arita Nocturnal polysomnography was performed for evaluation of sleep physiology in this patient with a history of witnessed apneas, excessive somnolence, and nonrestorative sleep. 6 hours and 29 minutes of data were reviewed. There were 315 minutes of sleep identified. Sleep latency was prolonged at 55 minutes. Rapid eye movement (REM) latency was short at 5 minutes. Sleep architecture was good with three REM cycles. Overall sleep efficiency was 82.2%. The electrocardiogram showed a sinus rhythm with an average heart rate of 62 beats per minute. Electroencephalogram (EEG) showed normal waveforms for awake and sleep. There were 51 respiratory events identified of 10 seconds in duration or greater for an apnea-hypopnea index of 9.7. The events were obstructive, not exclusive to sleep stage nor body posture. Arousals from respiratory events and arousals from snoring were included, occurred 12.6 times per hour. Oxygen desaturations were seen into the 80s. The remaining measures of sleep physiology were normal. IMPRESSION: Obstructive sleep apnea syndrome (G47.33). Apnea-hypopnea index 9.7. RECOMMENDATIONS: The patient should be encouraged to return to the sleep disorder center for pressure therapy. In the interim, alcohol and sedative avoidance should be practiced and caution exercised during the operation of motor vehicles.
== END ==
LOC: M SLEEP 19:47
PROVIDERS: ATTEND Nurse Practitioner Adult Health
DX: G47.33 Obstructive sleep apnea (adult) (pediatric) (principal)

== ENCOUNTER → 2018-12-29 | Outpatient (CLI) | payer OTHER ==
--- NOTE | 2018-12-29 09:42 | REP ---
ULTRASOUND ABDOMEN: Real-time sonographic evaluation of the abdomen performed. The patient has had a prior cholecystectomy. There is no intrahepatic or extrahepatic biliary dilatation, common bile duct measuring 6 mm. The liver and pancreas demonstrate no gross mass, pancreatic tale is not well seen due to overlying bowel gas. The spleen is mildly enlarged 1.6 x 5.0 x 13.3 cm with splenic index 838. No intrinsic abnormality is seen. The kidneys are normal in size and echotexture, right kidney measuring 1.1 x 5.8 x 4.7 cm and left kidney 12.0 x 5.3 x 5.6 cm. There is no renal mass, hydronephrosis or nephrolithiasis. Abdominal aorta is normal in caliber, approximately measuring 2.5 cm, mid aspect 1.7 and distally 1.5 cm. There is no ascites. IMPRESSION: Status post cholecystectomy with no biliary dilatation or free fluid. Mild splenomegaly. Electronically Signed by Josh Westbrook MD 12/29/2018 04:28 P
== END ==
LOC: M RAD 07:42
PROVIDERS: ATTEND Internal Medicine
DX: R10.811 Right upper quadrant abdominal tenderness (principal); Z90.49 Acquired absence of other specified parts of digestive tract; R16.1 Splenomegaly, not elsewhere classified

== ENCOUNTER → 2019-01-07 | Outpatient (CLI) | payer OTHER ==
--- NOTE | 2019-01-11 17:53 | SLEEPCENT ---
DATE OF PROCEDURE: 01/07/2019 ORDERED BY: Sondra Bianchi Nocturnal polysomnography was performed for the titration of pressure therapy in this patient with obstructive sleep apnea syndrome. Apnea-hypopnea index 9.7. For testing a [employer] nasal pillows device of medium size was used. 4 cm of water pressure were applied to the circuit and the lights were extinguished. 7 hours and 50 minutes of data were reviewed. There are 327 minutes of sleep identified. Sleep latency was prolonged at 115 minutes. REM latency was short at 5.5 minutes. Sleep architecture improved with optimal pressure therapy. Overall sleep efficiency was 71%. The electrocardiogram showed a sinus rhythm with an average heart rate is 58 beats per minute. EEG showed normal waveforms for awake and sleep. Respiratory events were fully palliated with C-PAP of pressure of +6. Some limb activity was noted early in the study and is improved following administration of pressure therapy. Remaining measures of sleep physiology were normal. IMPRESSION: Obstructive sleep apnea syndrome (G47.33) RECOMMENDATIONS: Nightly use of pressure therapy 6 cm of water.
== END ==
LOC: M SLEEP 19:34
PROVIDERS: ATTEND Nurse Practitioner Adult Health
DX: G47.33 Obstructive sleep apnea (adult) (pediatric) (principal)

== ENCOUNTER 2019-03-25 18:11 | Emergency (ER) | payer OTHER ==
[~2019-03-25] VITALS: Ht 188 cm; Wt 129.6 kg
[~2019-03-25 18:11] MED LIST changes: -DIPH25CA PO; +DIPH25CA32 PO; +HYDR1TAB33 PO; -HYDRO50TAB PO
[2019-03-25] MEDS ORDERED: FAMOTIDINE INJ 20MG/2ML VIAL (S0028) IVP ONE (18:30)
[2019-03-25] MEDS ORDERED: diphenhydrAMINE INJ 50MG/ML VIAL (J1200) IV ONE (18:30)
[2019-03-25] MEDS ORDERED: methylPREDNISolone INJ 125 MG/2 ML VIAL (J2930) IV ONE (18:30)
[2019-03-25] MEDS ORDERED: NS 1,000 ML IV ONE (18:30)
[2019-03-25 20:00] VITALS: BP 135/66
[2019-03-25] MEDS ORDERED: BENA25CA4 PO (20:04)
[2019-03-25] MEDS ORDERED: PRED20TA PO (20:04)
== END 2019-03-25 20:18 | disposition home or self-care (01) ==
LOC: M ED 18:11
DX: T63.441A Toxic effect of venom of bees, accidental (unintentional), initial encounter (principal); J45.909 Unspecified asthma, uncomplicated; Z91.030 Bee allergy status; Z91.018 Allergy to other foods; Z79.899 Other long term (current) drug therapy
CPT/HCPCS: 93041; 94760; 96361; 96374; 96375; 99284; J1200; J2930

== ENCOUNTER → 2019-04-16 | Outpatient (CLI) | payer OTHER ==
[~2019-04-16] MED LIST changes: +BENA25CA4 PO; +PRED20TA PO
--- NOTE | 2019-04-16 08:55 | REP ---
Maxillofacial CT study without contrast: History: Sleep apnea. No comparison imaging. Findings: There is 1-2 mm mucosal thickening affecting the maxillary sinuses bilaterally. There is a 1 cm mucous retention cyst along the anterior wall of the right maxillary sinus and a subcentimeter mucous retention cyst is seen anteriorly in the left maxillary sinus. There is mild mucosal thickening in the ethmoid septations. Sphenoid sinus shows minimal mucosal thickening as well. The frontal sinuses are clear. Mastoid aeration is normal and symmetric. Bony sinus margins are intact. Bony nasal septum is bowed slightly anteriorly to the left. Nasal turbinate soft tissues are unremarkable. There are Fransico cells visible bilaterally. The left ostiomeatal complex is widely patent. On the right there is some mucosal thickening narrowing the ostium. No intraorbital abnormality is seen. The deep facial and visualized intracranial soft tissues are unremarkable. Impression: Bilateral paranasal sinus mucosal thickening affecting the maxillary ethmoid and sphenoid sinuses. Electronically Signed by Laith Dickinson MD 04/16/2019 10:49 A
== END ==
LOC: M RAD 06:56
PROVIDERS: ATTEND Otolaryngology
DX: G47.33 Obstructive sleep apnea (adult) (pediatric) (principal); J32.2 Chronic ethmoidal sinusitis; J32.0 Chronic maxillary sinusitis; J32.3 Chronic sphenoidal sinusitis

== ENCOUNTER → 2019-05-05 | Outpatient (CLI) | payer OTHER ==
[2019-05-05 16:47] LABS: COLLAGEN EPINEPHRINE 105 SECONDS (74-162)
[2019-05-05 16:51] LABS: PLTBLUE- EDTA FREE CALC 128 K/mm3 (172-450)
[2019-05-05 17:19] LABS: PLTBLUE- EDTA FREE MACHINE 116 10^3/uL (172-450)
== END ==
LOC: M LAB 16:16
PROVIDERS: ATTEND Internal Medicine
DX: D69.6 Thrombocytopenia, unspecified (principal)

== ENCOUNTER 2019-06-27 05:05 | Emergency (ER) | payer OTHER ==
[2019-06-27] MEDS ORDERED: MELA3TAB41 PO (05:30)
[2019-06-27] MEDS ORDERED: PRAZ1CAP (05:30)
[2019-06-27] MEDS ORDERED: LEXA5TAB13 PO (05:30)
[2019-06-27] MEDS ORDERED: LUNE2TAB23 PO (05:30)
[2019-06-27] MEDS ORDERED: MULTIVITAMIN -ADULT INJECTION 10 ML, THIAMINE INJection 100 MG, FOLIC ACID 1 MG in NS 1... IV ONE (06:15)
[2019-06-27 06:44] LABS: BASO # 0.1 10^3/uL (0.0-0.2); BASO % 0.5 % (0.0-1.0); EOS # 0.2 10^3/uL (0.0-0.5); EOS % 2.1 % (0.0-3.0); HEMOGLOBIN 17.8 g/dl (13.5-17.5); LYMPH # 2.6 10^3/uL (1.5-5.0); MEAN CORPUSCULAR HEMOGLOBIN 29.2 pg (27.0-33.0); MEAN CORPUSCULAR HGB CONC 33.6 g/dl (32.0-36.5); MONO # 0.6 10^3/uL (0.0-0.8); MONO % 6.1 % (0.0-5.0); NEUTROPHILS # 6.4 10^3/uL (1.5-8.5); NEUTROPHILS % 64.7 % (36.0-66.0); PLATELET COUNT, AUTOMATED 131 10^3/uL (150-450); RED BLOOD COUNT 6.09 10^6/uL (4.30-6.10); WHITE BLOOD COUNT 9.9 10^3/uL (4.0-10.0)
[2019-06-27 07:12] LABS: ALBUMIN 4.4 GM/DL (3.2-5.2); ALT/SGPT 87 U/L (12-78); BILIRUBIN,DIRECT 0.1 MG/DL (0.0-0.2); BILIRUBIN,TOTAL 0.5 MG/DL (0.2-1.0); BLOOD UREA NITROGEN 10 MG/DL (7-18); CALCIUM LEVEL 9.3 MG/DL (8.5-10.1); CARBON DIOXIDE LEVEL 29 MEQ/L (21-32); CHLORIDE LEVEL 105 MEQ/L (98-107); CREATININE FOR GFR 1.19 MG/DL (0.70-1.30); ETHYL ALCOHOL (ETHANOL) 0.107 % (0.000-0.010); GLOMERULAR FILTRATION RATE > 60.0 (>60); GLUCOSE, FASTING 93 MG/DL (70-100); LIPASE 128 U/L (73-393); MAGNESIUM LEVEL 2.3 MG/DL (1.8-2.4); POTASSIUM SERUM 3.9 MEQ/L (3.5-5.1); SODIUM LEVEL 142 MEQ/L (136-145)
[2019-06-27 09:30] VITALS: BP 120/56
== END 2019-06-27 10:08 | disposition home or self-care (01) ==
LOC: M ED 05:05
DX: F10.229 Alcohol dependence with intoxication, unspecified (principal); Y90.0 Blood alcohol level of less than 20 mg/100 ml; J45.909 Unspecified asthma, uncomplicated; F33.9 Major depressive disorder, recurrent, unspecified; Z79.899 Other long term (current) drug therapy; Z91.018 Allergy to other foods; Z91.030 Bee allergy status
CPT/HCPCS: 80048; 80076; 82140; 83605; 83690; 83735; 85025; 96360; 96361; 99285; G0480; J3411

== ENCOUNTER → 2019-07-12 | Outpatient (CLI) | payer OTHER ==
[~2019-07-12] MED LIST changes: +LEXA5TAB13 PO; +LUNE2TAB23 PO; +MELA3TAB41 PO; +PRAZ1CAP
--- NOTE | 2019-07-12 15:13 | PFTRPT ---
Height: 73.00 Inches Weight: 260.00 Lbs BSA: 2.41 Diagnosis: WHEEZING DATE OF PROCEDURE: 07/12/2019 ORDERED BY: Kamron Muller PA-C Spirometry: Pre and post bronchodilator study of excellent technical quality. Forced vital capacity normal. FEV1 out of proportion. Obstructive index is, therefore, reduced. Flow Volume Loop: Expiratory limb of the flow volume loop consistent with flow rate limitation. Favorable bronchodilator response is identified. Lung Volumes: Total lung capacity elevated. Residual volume is normal. Diffusing Capacity: Diffusing capacity normal. Hemoglobin: No hemoglobin available for correction. Airway Mechanics: Airway resistance elevated with a concomitant decrease in airway conductance. IMPRESSION: Moderate obstructive ventilatory impairment with bronchodilator response. Please correlate clinically. MTDD
== END ==
LOC: M CARPUL 14:36
PROVIDERS: ATTEND Physician Assistant
DX: R06.2 Wheezing (principal)